=== PATIENT | male | born 1955 | race Caucasian/White ===

== ENCOUNTER 2023-11-25 11:27 | Outpatient (OUT) | payer MEDICARE, MEDICAID, SELFPAY ==
[2023-11-25 12:00] LABS: Basophils Absolute Auto 0.1 10^3/uL (0.0-0.1); Basophils Percent Auto 0.6 % (0.2-2.0); Eosinophils Absolute Auto 1.1 10^3/uL (0.0-0.7); Eosinophils Percent Auto 13.5 % (0.9-7.0); Hematocrit 47.3 % (42.0-54.0); Hemoglobin 16.1 g/dL (14.0-18.0); Immature Granulocytes Abs Auto 0.02 10^3/uL (0.00-0.03); Immature Granulocytes Pct Auto 0.3 % (0.0-0.5); Lymphocytes Absolute Auto 1.4 10^3/uL (1.2-3.8); Lymphocytes Percent Auto 17.8 % (20.5-60.0); Mean Corpuscular Volume 88.1 fL (80.0-94.0); Mean Platelet Volume 9.6 fL (9.5-13.5); Monocytes Absolute Auto 0.8 10^3/uL (0.3-0.8); Monocytes Percent Auto 9.7 % (1.7-12.0); Neutrophils Absolute Auto 4.6 10^3/uL (1.4-6.5); Neutrophils Percent Auto 58.1 % (43.0-75.0); Platelet Count 227 10^3/uL (150-450); Red Blood Count 5.37 10^6/uL (4.70-6.10); White Blood Count 7.9 10^3/uL (4.0-11.0)
[2023-11-25 13:44] LABS: Anion Gap 9.2; BUN Creatinine Ratio 15.5; Calcium 9.9 mg/dL (8.5-10.1); Carbon Dioxide 31.7 mmol/L (21.0-32.0); Chloride 101 mmol/L (98-107); Estimated GFR (African America >60 (>=60); Estimated GFR (Non-African Ame >60 (>=60); Glucose 84 mg/dL (74-106); Potassium 3.9 mmol/L (3.5-5.1); Sodium 138 mmol/L (136-145)
[2023-11-25 14:33] LABS: Free T4 0.82 ng/dL (0.76-1.46)
== END 2023-11-25 11:28 | disposition home or self-care (01) ==
LOC: LAB 11:34
PROVIDERS: PCP Family Medicine; Visit Provider Family Medicine
DX: E03.9 Hypothyroidism, unspecified (principal); I10 Essential (primary) hypertension
CPT/HCPCS: 36415; 80048; 84439; 84443; 85025

== ENCOUNTER 2024-08-22 06:52 | Outpatient (OUT) | payer MEDICARE, MEDICAID, SELFPAY ==
--- OUTSIDE RECORDS SUMMARY | 2024-08-22 06:55 | XMS_ITS | CCD ---
Author Organization [facility] Care Team Providers Care Senior Risk Analyst Name Role Phone Shanti Walker Unavailable DENISE, DR SHANTI Worthy Admitting Unavailable WALKER, DR SHANTI Worthy Attending Unavailable WALKER, DR SHANTI Worthy Primary Care Unavailable WALKER, DR SHANTI Worthy Admitting Unavailable WALKER, DR SHANTI Worthy Attending Unavailable WALKER, DR SHANTI Worthy Primary Care Unavailable WALKER, DR SHANTI Worthy Consulting Unavailable WALKER, DR SHANTI Worthy Admitting Unavailable WALKER, DR SHANTI Worthy Attending Unavailable WALKER, DR SHANTI Worthy Primary Care Unavailable CARI, DR TITUS Pacheco Consulting Unavailable WALKER, DR SHANTI Worthy Consulting Unavailable JAYLIN BURNHAM Consulting Unavailable DO Haider Young Attending Provider MD Shanti Walker Primary Care Provider [phone] Shanti Walker Primary Care Unavailable Haider Young Attending UnavailHaider Mackay Admitting UnavailShanti Grimaldo MD Primary Care Provider [phone] Shanti Walker MD Primary Care Provider DUGLAS PHILLIPS Attending Unavailable DUGLAS PHILLIPS Attending Unavailable DUGLAS PHILLIPS Attending Unavailable DUGLAS PHILLIPS Attending Unavailable DUGLAS PHILLIPS Attending Unavailable Allergies Allergy Classification Reported Allergen(s) Allergy Type Date of Onset Reaction(s) Facility (2 sources) Bacitracin Drug Allergy 06-06-19 14 [facility] (2 sources) bee venom Drug allergy (disorder) 06-06-19 14 [facility] (2 sources) Neomycin Drug Allergy 05-30-19 14 [facility] (2 sources) Mold Extract Drug Allergy Unknown [facility] Other (2 sources) Sulfamethoxazole / Trimethoprim Drug Allergy 09-12-19 17 Unknown [facility] Other (2 sources) Allergies Reconciled Propensity to adverse reactions Unknown [facility] Other (2 sources) Bee Sting Drug allergy 02-25-20 13 Unknown [facility] Other (2 sources) patient allergy list reviewed by nurse or physicia Propensity to adverse reactions 02-25-20 13 Comment:Done [facility] Other (2 sources) Neosporin + Pain Relief Max [facility] *DERMATOLOGICALS* Propensity to adverse reactions 02-25-20 13 Unknown [facility] Other (5 sources) Bacitracin Drug Allergy 08-03-19 [facility] (5 sources) Neomycin Drug Allergy 08-03-19 [facility] (5 sources) Polymyxin B Drug Allergy 08-03-19 [facility] Medications Current Medications Medication Drug Class(es) Dates Sig (Normalized) Sig (Original) azithromycin 250 mg oral tablet (1 source) Macrolide Antimicrobial Start: 01-29-2023 Azithromycin 250 MG as directed Orally 2 tabs po today, then 1 tab daily x 4 more days for 5 Jan, Active benzonatate 200 mg oral capsule (1 source) Non-narcotic Antitussive Start: 01-29-2023 take 1 capsule by mouth every eight hours Benzonatate 200 MG 1 capsule Orally Three times a day for 10 day(s) Jan, Active carbidopa 25 mg / levodopa 100 mg oral tablet (5 sources) Aromatic Amino Acid Decarboxylation Inhibitor, Aromatic Amino Acid Start: 12-13-2023 carbidopa-levodopa (Sinemet) 25-100 MG tablet Indications: Parkinson's disease TAKE 1/2 TABLET BY MOUTH 3 TIMES DAILY 30 135 tablet 1 12/13/2023 Active cefdinir 300 mg oral capsule (1 source) Cephalosporin Antibacterial take 1 tablet by mouth twice daily Cefdinir 300 MG 1 tab Orally bid for 7 days Active ciprofloxacin 2 mg/ml otic solution (1 source) Quinolone Antimicrobial Ciprofloxacin HCl 0.2 % 0.25 mL into affected ear Otic 4 dropperful three times daily for 7 days Active ciprofloxacin 3 mg/ml / dexamethasone 1 mg/ml otic suspension (5 sources) Corticosteroid, Quinolone Antimicrobial ciprofloxacin-dexAM ETHasone (Ciprodex) otic suspension every 12 (twelve) hours. Active citalopram 20 mg oral tablet (10 sources) Serotonin Reuptake Inhibitor take 1 tablet by mouth once daily in the morning citalopram (CeleXA) 20 MG tablet take 1 tablet by ORAL route every morning Oral Active diphenhydrAMINE hydrochloride 25 mg oral tablet (10 sources) Histamine-1 Receptor Antagonist take 1 tablet by mouth once daily in the evening diphenhydrAMINE (Benadryl Allergy) 25 MG tablet 1 by mouth every evening Active Benadryl 25 MG 1 capsule as needed Orally at bedtime Active [id number] 0.3 ml EPINEPHrine 1 mg/ml auto-injector (10 sources) alpha-Adrenergic Agonist, beta-Adrenergic Agonist, Catecholamine Start: 08-20-2021 EPINEPHrine (Epipen) 0.3 MG/0.3ML injection syringe USE ONE INJECTION NEEDED 08/20/2021 Active EPINEPHrine 0.3 MG/0.3ML as directed Injection as needed Active hydroCHLOROthiazide 25 mg / lisinopril 20 mg oral tablet (10 sources) Thiazide Diuretic, Angiotensin Converting Enzyme Inhibitor Start: 07-14-2010 take 1 tablet by mouth every twenty-four hours Lisinopril-hydroCHLOROthiazide 20-25 MG 1 tablet Orally Once a day for 90 day(s) June, Active ammonium lactate 120 mg/ml topical lotion (5 sources) ammonium lactate (Lac-Hydrin) 12 % lotion APPLY TO AFFECTED AREA TWICE A DAY for 30 Active meloxicam 15 mg oral tablet (5 sources) Nonsteroidal Anti-inflamm atory Drug Start: 07-06-2022 meloxicam (Mobic) 15 MG tabl et 1 (one) time each day at the same time. 07/06/2022 Active ofloxacin 3 mg/ml otic solution (5 sources) Quinolone Antimicrobia l Start: 07-07-2022 ofloxacin (Floxin) 0.3 % mendez c solution INSTILL 4 DROPS IN AFFECTED EAR 3 TIMES DAILY FOR 7 DAYS 07/07/2022 Active Completed/Discontinued Medications Medication Drug Class(es) Dates Sig (Normalized) Sig (Original) levothyroxine sodium 0.125 mg oral tablet (5 sources) l-Thyroxine take 1 tablet by once daily in the morning Synthroid 125 MCG 1 tablet in the morning on an empty stomach Orally Once a day Not-Taking/PRN take 1 tablet by lou th once daily in the morning Synthroid 125 MCG 1 tablet in the mornin g on an empty stomach Orally Once a day Not-Taking Problems Active Problems Problem Classification Problem Date Documented Date Episodic/Chronic Anxiety disorders (7 sources) Generalized anxiety disorder; Translations: [Generalized anxiety disorder] Onset: 3 Chronic Bacterial infection; unspecified site (1 source) Other specified bacterial agents as the cause of diseases classified elsewhere Episodic Developmental disorders (2 sources) Mental retardation; Translations: [Unspecified intellectual disabilities] Onset: 3 Chronic Disorders of lipid metabolism (5 sources) Pure hypercholesterolemia; Translations: [Pure hypercholesterolemia] Chronic Esophageal disorders (5 sources) Gastroesophageal reflux disease; Translations: [GERD] Chronic Essential hypertension (16 sources) Hypertensive disorder; Translations: [Hypertension] Onset: 3 Chronic Immunizations and screening for infectious disease (2 sources) Vaccination given; Translations: [Encounter for immunization] Episodic Mycoses (2 sources) Pain in toe; Translations: [Tinea unguium] 12-16-2023 Episodic Osteoarthritis (5 sources) Primary osteoarthritis, left shoulder; Translations: [Arthropathy, unspecified, shoulder region] Onset: 3 08-03-2022 Chronic Other circulatory disease (7 sources) Elevated blood-pressure reading without diagnosis of hypertension; Translations: [Elevated blood-pressure reading, without diagnosis of hypertension] Episodic Other connective tissue disease (1 source) Pain in right leg Episodic Other connective tissue disease (1 source) Pain in left leg Episodic Other connective tissue disease (1 source) Capsulitis of metatarsophalangeal joint of right foot; Translations: [Other enthesopathy of right foot and ankle] 12-16-2023 Episodic Other ear and sense organ disorders (2 sources) Chronic otitis externa; Translations: [Unspecified chronic otitis externa, unspecified ear] Chronic Other ear and sense organ disorders (7 sources) Impacted cerumen; Translations: [Impacted cerumen, bilateral] Episodic Other gastrointestinal disorders (5 sources) Irritable bowel syndrome; Translations: [IBS [Irritable bowel syndrome]] Chronic Other injuries and conditions due to external causes (7 sources) Unspecified injury of muscle, fascia and tendon of the posterior muscle group at thigh level, left thigh, initial encounter; Translations: [Left hamstring injury, initial encounter] Episodic Other lower respiratory disease (7 sources) Dyspnea; Translations: [Other forms of dyspnea] Episodic Other lower respiratory disease (2 sources) Wheezing; Translations: [WHEEZING] Onset: 3 Episodic Other nervous system disorders (3 sources) Chronic pain; Translations: [Other chronic pain] Chronic Other nervous system disorders (2 sources) Carpal tunnel syndrome; Translations: [Carpal tunnel syndrome, unspecified upper limb] Onset: 4 Chronic Other nervous system disorders (1 source) Other chronic pain Chronic Other nervous system disorders (5 sources) Shuffling gait; Translations: [Other abnormalities of gait and mobility] Episodic Other nervous system disorders (1 source) Other abnormalities of gait and mobility Episodic Other nervous system disorders (1 source) Ataxia, unspecified; Translations: [Ataxia, unspecified] Onset: 3 Episodic Other nutritional; endocrine; and metabolic disorders (11 sources) Body mass index 25-29 - overweight; Translations: [Body mass index (BMI) 29.0-29.9, adult] Onset: 7 Episodic Other skin disorders (2 sources) Asteatosis cutis; Translations: [Xerosis cutis] 12-16-2023 Episodic Other upper respiratory disease (5 sources) Allergic rhinitis; Translations: [Allergic rhinitis, cause unspecified] Chronic Other upper respiratory disease (5 sources) Seasonal allergy; Translations: [Other seasonal allergic rhinitis] Chronic Other upper respiratory disease (2 sources) Seasonal allergic rhinitis; Translations: [Other seasonal allergic rhinitis] Chronic Other upper respiratory infections (7 sources) Bacterial sinusitis; Translations: [Chronic sinusitis, unspecified] Chronic Otitis media and related conditions (1 source) Otitis media, unspecified, right ear Episodic Spondylosis; intervertebral disc disorders; other back problems (1 source) Radiculopathy, lumbar region Episodic Unclassified (3 sources) LOW BACK PAIN, UNSPECIFIED; Translations: [LOW BACK PAIN, UNSPECIFIED] Onset: 3 Unclassified (2 sources) 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); Translations: [Post COVID-19 condition, unspecified] Past or Other Problems Problem Classification Problem Date Documented Da te Episodic/Chronic Acute bronchitis (2 sources) Acute bronchitis; Translations: [Acute bronchitis, unspecified] Onset: 03-23-2013 Episodic Allergic reactions (2 sources) Contact dermatitis; Translations: [Contact dermatitis and other eczema, due to unspecified cause] Onset: 08-15-2018 Episodic Disorders of teeth and jaw (2 sources) Carious exposure of pulp ; Translations: [Dental caries extending into pulp] Onset: 01-18-2017 Episodic Inflammation; infection of eye (except that caused by tuberculosis or sexually transmitteddisease) (2 sources) Acute conjunctivitis; Translations: [Unspecified acute conjunctivitis] Onset: 10-19-2017 Episodic Malaise and fatigue (5 sources) Asthenia; Translations: [Weakness] Onset: 07-22-2022 07-22-2022 Episodic Open wounds of extremities (2 sources) Late effect of open wound of extremities without tendon injury; Translations: [Laceration with foreign body, left foot, sequela] Onset: 09-11-2016 Episodic Other connective tissue disease (2 sources) Plantar fascial fibromatosis; Translations: [Plantar fascial fibromatosis] Onset: 12-15-2016 Episodic Other connective tissue disease (5 sources) Nontraumatic complete rupture of rotator cuff of left shoulder; Translations: [Complete rotator cuff tear or rupture of left shoulder, not specified as traumatic] Onset: 08-03-2022 08-03-2022 Episodic Other connective tissue disease (5 sources) Adhesive capsulitis of left shoulder; Translations: [Adhesive capsulitis of left shoulder] Onset: 08-03-2022 08-03-2022 Episodic Other ear and sense organ disorders (2 sources) Acute otitis externa; Translations: [Acute swimmers' ear] Onset: 09-23-2017 Episodic Other nervous system disorders (2 sources) Abnormal involuntary movement; Translations: [Unspecified abnormal involuntary movements] Onset: 02-24-2013 Episodic Other non-traumatic joint disorders (6 sources) Pain in right shoulder; Translations: [Pain in joint, shoulder region] Onset: 07-22-2022 Episodic Other non-traumatic joint disorders (2 sources) Arthralgia of the lower leg; Translations: [Pain in joint, lower leg] Onset: 06-17-2018 Episodic Other non-traumatic joint disorders (5 sources) Stiffness of right shoulder; Translations: [Stiffness of right shoulder, not elsewhere classified] Onset: 07-22-2022 07-22-2022 Episodic Other screening for suspected conditions (not mental disorders or infectious disease) (1 source) Encounter for screening for malignant neoplasm of prostate; Translations: [ENC SCREEN MALIG NEOPLASM PROSTATE] Onset: 12-19-2021 Episodic Other upper respiratory infections (3 sources) Acute maxillary sinusitis; Translations: [Acute recurrent maxillary sinusitis] Onset: 11-05-2017 Episodic Skin and subcutaneous tissue infections (2 sources) Cellulitis of finger; Translations: [Cellulitis of unspecified finger] Onset: 06-10-2017 Episodic Unclassified (3 sources) [id number] condition; Translations: [[id number] condition] Unclassified (1 source) Low back pain, unspecified M54.50 Unclassified (1 source) LOW BACK PAIN, UNSPECIFIED; Translations: [LOW BACK PAIN, UNSPECIFIED] Onset: 04-22-2022 Unclassified (2 sources) 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); Translations: [Gdlp-[id number]-13 condition] Results Test Name Value Interpretation Reference Range Facil ity CT head/brain wo conon 06-29 CT head/brain wo con [facility] [place] [address] CT Scan Report Signed Patient: Esteban Weeks MR#: [id number] : 1955 Acct:[id number] Age/Sex: 66 / M ADM Date: 06/29/22 Loc: [facility] Room: Type: [facility] Attending Dr: Haider Young DO Copies to: Naseem Young DO Ordering Provider: Naseem Young DO Date of Service: 06/29/22 CT/CT head/brain wo con: R27.[address] TECHNIQUE: Contiguous axial imaging of the head. The CT exam was performed using one or more the following dose reduction techniques: Automated exposure control, adjustment of the MA and/or Kv according to patient size, or use of the iterative reconstruction technique. COMPARISON: None HISTORY: Unsteady gait. Ataxia. VENTRICLES: Within normal limits ATROPHY: None BRAIN PARENCHYMA: Adequate mercer-white matter differentiation identified. HEMORRHAGE: None HERNIATION: No mass effect or herniation INFARCTION: No recent vascular distribution infarction is seen. EXTRA-AXIAL FLUID COLLECTIONS None MIDBRAIN: Unremarkable MELISSA: Unremarkable MEDULLA: Unremarkable SINUSES: Mild sinus disease. ORBITS: Grossly unremarkable MASTOIDS: Unremarkable BONY STRUCTURES chronic RIGHT mastoidectomy changes. ADDITIONAL FINDINGS: CT/CT head/brain wo con IMPRESSION: Unremarkable exam Impression dictated by: Rajat Ivey M.D.06/29/2022 1:45 PM Dictation Location: [place] [address] Transcribed By: [facility] 06/29/22 1345 Dictated By: Rajat Ivey DO 06/29/22 1344 Signed By: 06/29/22 1345 Normal [facility] XR LSPINE 2_3 VIEWSon 2022 XR LSPINE 2_3 VIEWS EXAMINATION: XR LSPINE 2_3 VIEWS HISTORY: Low back pain , chronic COMPARISON: XR L-spine 03/14/2021 FINDINGS: BONES: Mild left convex curvature of lumbar spine. Anderson jerardo extending from L1 cephalad above the level of imaging. No fracture or spondylolisthesis. Multilevel moderate degenerative facet arthropathy. DISC SPACES: Mild narrowing L5-S1. PARASPINOUS: Negative. No paraspinous abnormality is seen. OTHER: Negative. IMPRESSION: 1. Multilevel mild to moderate degenerative changes. 2. Stable mild levocurvature and visible portion of thoracic Juice jerardo. Electronically authenticated by: TITUS ALCALA Date: 2022-04-23 18:21 Normal [facility] XR CHEST 2 Von 04-22-2022 XR CHEST 2 V EXAM: XR CHEST 2 V HISTORY: Low back pain . Wheezing. COMPARISON: 03/12/2019 TECHNIQUE: Upright PA and lateral chest x-ray FINDINGS: The heart is not enlarged and the vasculature is not distended. No acute infiltrate, effusion or pneumothorax is identified. Scoliosis the spine is noted with hardware in place posteriorly. IMPRESSION: No acute infiltrate or evidence of cardiac decompensation. The overall appearance of the chest is essentially unchanged. Electronically authenticated by: JAYLIN BURNHAM Date: 2022-04-22 14:24 Normal [facility] CBC AUTO DIFFon 12-16-2021 BASO # 0.0 103/ul Normal 0.0-0.1 [facility] Comment on above: Performed By: #### C BC #### [facility] [address] [place] [address] [address] Ubaldo Palafox Basophils/100 WBC (Bld) 0.6 % Normal 0.2-2.0 [facility] Comment on above: Performed By: #### C BC #### [facility] [address] [place] [address] Dr. Ubaldo Palafox EO # 0.9 103/ul Critically high 0.0-0.7 [facility] Comment on above: Performed By: #### C BC #### [facility] [address] [place] [address] Dr. Ubaldo Palafox Eosinophils/100 WBC (Bld) 12.4 % Critically high 0.9-7.0 [facility] Comment on above: Performed By: #### C BC #### [facility] [address] [place] [address] Dr. Ubaldo Palafox Erythrocyte distribution width (RBC) [Ratio] 12.8 % Normal 11.0-15.0 [facility] Comment on above: Performed By: #### C BC #### [facility] [address] [place] [address] Dr. Ubaldo Palafox Hematocrit (Bld) [Volume fraction] 48.0 % Normal 42.0-54.0 [facility] Comment on above: Performed By: #### C BC #### [facility] [address] [place] [address] Dr. Ubaldo Palafox Hemoglobin (Bld) [Mass/Vol] 16.2 g/dL Normal 14.0-18.0 [facility] Comment on above: Performed By: #### C BC #### [facility] [address] [place] [address] Dr. Ubaldo Palafox IG # 0.02 10e3/ul Normal 0.00-0.03 [facility] Comment on above: Performed By: #### C BC #### [facility] [address] [place] [address] Dr. Ubaldo Palafox IG % 0.3 % Normal 0.0-0.5 [facility] Comment on above: Performed By: #### C BC #### [facility] [address] [address] [address] Ubaldo Palafox LYMPH # 1.6 103/ul Normal 1.2-3.8 [facility] Comment on above: Performed By: #### C BC #### [facility] [address] [address] [address] Ubaldo Palafox Lymphocytes/100 WBC (Bld) 21.9 % Normal 20.5-60.0 [facility] Comment on above: Performed By: #### C BC #### [facility] [address] [address] [address] Ubaldo Palafox MANUAL DIFF REQ NO Normal [facility] Comment on above: Performed By: #### C BC #### [facility] [address] [place] [address] Dr. Ubaldo Palafox MCH (RBC) [Entitic mass] 29.7 pg Normal 25.9-34.0 [facility] Comment on above: Performed By: #### C BC #### [facility] [address] [place] [address] Dr. Ubaldo Palafox MCHC (RBC) [Mass/Vol] 33.8 g/dL Normal 29.9-35.2 [facility] Comment on above: Performed By: #### C BC #### [facility] [address] [place] [address] Dr. Ubaldo Palafox MCV (RBC) [Entitic vol] 87.9 fL Normal 80.0-94.0 [facility] Comment on above: Performed By: #### C BC #### [facility] [address] [place] [address] Dr. Ubaldo Palafox MONO # 0.9 103/ul Critically high 0.3-0.8 [facility] Comment on above: Performed By: #### C BC #### [facility] [address] [place] [address] Dr. Ubaldo Palafox Monocytes/100 WBC (Bld) 11.9 % Normal 1.7-12.0 [facility] Comment on above: Performed By: #### C BC #### [facility] [address] [place] [address] Dr. Ubaldo Palafox NEUT # 3.8 103/ul Normal 1.4-6.5 [facility] Comment on above: Performed By: #### C BC #### [facility] [address] [place] [address] Dr. Ubaldo Palafox Neutrophils/100 WBC (Bld) 52.9 % Normal 43.0-75.0 [facility] Comment on above: Performed By: #### C BC #### [facility] [address] [place] [address] Dr. Ubaldo Palafox Platelet mean volume (Bld) [Entitic vol] 9.6 fL Normal 9.5-13.5 [facility] Comment on above: Performed By: #### C BC #### [facility] [address] [place] [address] Dr. Ubaldo Palafox PLT 202 103/ul Normal 150-450 [facility] Comment on above: Performed By: #### C BC #### [facility] [address] [place] [address] Dr. Ubaldo Palafox RBC 5.46 106/ul Normal 4.70-6.10 [facility] Comment on above: Performed By: #### C BC #### [facility] [address] [place] [address] Dr. Ubaldo Palafox WBC 7.2 103/ul Normal 4.0-11.0 [facility] Comment on above: Performed By: #### C BC #### [facility] [address] [place] [address] Dr. Ubaldo Palafox PROF 14(COMP METB)on 022 Albumin [Mass/Vol] 4.3 g/dL Normal 3.4-5.0 [facility] Comment on above: Performed By: #### C MP #### [facility] [address] [place] [address] Dr. Ubaldo Palafox Albumin/Globulin [Mass ratio] 1.4 {ratio} Normal [facility] Comment on above: Performed By: #### C MP #### [facility] [address] [place] [address] Dr. Ubaldo Palafox ALP [Catalytic activity/Vol] 64 U/L Normal 46-116 [facility] Comment on above: Performed By: #### C MP #### [facility] [address] [place] [address] Dr. Ubaldo Palafox ALT [Catalytic activity/Vol] 30 U/L Normal 16-63 [facility] Comment on above: Performed By: #### C MP #### [facility] [address] [place] [address] Dr. Ubaldo Palafox Anion gap [Moles/Vol] 10.0 mmol/L Normal [facility] Comment on above: Performed By: #### C MP #### [facility] [address] [place] [address] Dr. Ubaldo Palafox AST [Catalytic activity/Vol] 20 U/L Normal 15-37 [facility] Comment on above: Performed By: #### C MP #### [facility] [address] [place] [address] Dr. Ubaldo Palafox Bilirubin [Mass/Vol] 0.6 mg/dL Normal 0.2-1.0 [facility] Comment on above: Performed By: #### C MP #### [facility] [address] [place] [address] Dr. Ubaldo Palafox Calcium [Mass/Vol] 9.4 mg/dL Normal 8.5-10.[address] [facility] Comment on above: Performed By: #### C MP #### [facility] [address] [place] [address] Dr. Ubaldo Palafox Chloride [Moles/Vol] 104 mmol/L Normal 98-107 [facility] Comment on above: Performed By: #### C MP #### [facility] [address] [address] [address] Ubaldo Palafox CO2 [Moles/Vol] 31.0 mmol/L Normal 21.0-32.0 [facility] Comment on above: Performed By: #### C MP #### [facility] [address] [place] [address] Dr. Ubaldo Palafox Creatinine [Mass/Vol] 1.03 mg/dL Normal 0.70-1.30 [facility] Comment on above: Performed By: #### C MP #### [facility] [address] [address] [address] Ubaldo Palafox EGFR-AF NIGERIAN >60 Normal >=60 [facility] Comment on above: Performed By: #### C MP #### [facility] [address] [address] [address] Ubaldo Palafox EGFR-NON AF NIGERIAN >60 Normal >=60 [facility] Comment on above: Performed By: #### C MP #### [facility] [address] [address] [address] Ubaldo Palafox Globulin (S) [Mass/Vol] 3.1 g/dL Normal [facility] Comment on above: Performed By: #### C MP #### [facility] [address] [place] [address] Dr. Ubaldo Palafox Glucose [Mass/Vol] 85 mg/dL Normal 74-[address] [facility] Comment on above: Performed By: #### C MP #### [facility] [address] [address] [address] Ubaldo Palafox Potassium [Moles/Vol] 4.0 mmol/L Normal 3.5-5.1 [facility] Comment on above: Performed By: #### C MP #### [facility] [address] [place] [address] Dr. Ubaldo Palafox Protein [Mass/Vol] 7.4 g/dL Normal 6.4-8.2 [facility] Comment on above: Performed By: #### C MP #### [facility] [address] [address] [address] Ubaldo Palafox Sodium [Moles/Vol] 141 mmol/L Normal 136-145 [facility] Comment on above: Performed By: #### C MP #### [facility] [address] [address] [address] Ubaldo Palafox Urea nitrogen [Mass/Vol] 15.0 mg/dL Normal 7.0-18.0 [facility] Comment on above: Performed By: #### C MP #### [facility] [address] [place], [place] [address] Dr. Ubaldo Palafox Urea nitrogen/Creatinin e [Mass ratio] 14.6 mg/mg Normal [facility] Comment on above: Performed By: #### C MP #### [facility] [address] [place], [place] [address] Dr. Ubaldo Palafox Vital Signs Date Time Vital Sign Value Performing Clinician Facility 06-15-2024 13:25-0400 Body height 175.3 cm Duglas Phillips DPM Work Phone: [facility] 06-15-2024 13:25-0400 Body mass index (BMI) [Ratio] 28.35 kg/m2 Duglas Phillips DPM Work Phone: [facility] 06-15-2024 13:25-0400 Body weight 87.09 kg Duglasdemetra Phillips DPM Work Phone: [facility] 06-15-2024 13:25-0400 Respiratory rate 16 /min Duglas Brown DPM Work Phone: [facility] 12-16-2023 12:56-0400 Body height 175.3 cm Duglas Alan DPM Work Phone: [facility] 12-16-2023 12:56-0400 Body mass index (BMI) [Ratio] 28.35 kg/m2 Duglas Brown DPM Work Phone: [facility] 12-16-2023 12:56-0400 Body weight 87.09 kg Duglas Brown DPM Work Phone: [facility] 12-16-2023 12:56-0400 Diastolic blood pressure 80 mm[Hg] Duglas Phillips DPM Work Phone: [facility] 12-16-2023 12:56-0400 Heart rate 88 /min Duglas Brown DPM Work Phone: [facility] 12-16-2023 12:56-0400 Systolic blood pressure 123 mm[Hg] Duglas Phillips DPM Work Phone: [facility] 04-06-2023 09:15-0500 Body height 182.88 cm Shanti Walker Other [facility] Other 04-06-2023 09:15-0500 Body mass index (BMI) [Ratio] 24.84 kg/m2 Shanti Walker Other [facility] Other 04-06-2023 09:15-0500 Body temperature 98 [degF] Shanti Walker Other [facility] Other 04-06-2023 09:15-0500 Body weight 83.1 kg Shanti Walker Other [facility] Other 04-06-2023 09:15-0500 Diastolic blood pressure 65 mm[Hg] Shanti Walker Other [facility] Other 04-06-2023 09:15-0500 Systolic blood pressure 105 mm[Hg] Shanti Walker Other [facility] Other 01-29-2023 09:15-0500 Body height 182.88 cm Shanti Walker Other [facility] Other 01-29-2023 09:15-0500 Body mass index (BMI) [Ratio] 25.09 kg/m2 Shanti Walker Other [facility] Other 01-29-2023 09:15-0500 Body temperature 96.2 [degF] Shanti Walker Other [facility] Other 01-29-2023 09:15-0500 Body weight 83.92 kg Shanti Walker Other [facility] Other 01-29-2023 09:15-0500 Diastolic blood pressure 80 mm[Hg] Shanti Walker Other [facility] Other 01-29-2023 09:15-0500 SaO2% (BldA) [Mass fraction] 98 % Shanti Walker Other [facility] Other 01-29-2023 09:15-0500 Systolic blood pressure 149 mm[Hg] Shanti Walker Other [facility] Other 04-21-2022 09:15-0500 Body height 182.88 cm Shanti Walker Other [facility] Other 04-21-2022 09:15-0500 Body mass index (BMI) [Ratio] 25.77 kg/m2 Shanti Walker Other [facility] Other 04-21-2022 09:15-0500 Body weight 86.18 kg Shanti Walker Other [facility] Other 04-21-2022 09:15-0500 Diastolic blood pressure 72 mm[Hg] Shanti Walker Other [facility] Other 04-21-2022 09:15-0500 SaO2% (BldA) [Mass fraction] 84 % Shanti Walker Other [facility] Other 04-21-2022 09:15-0500 Systolic blood pressure 120 mm[Hg] Shanti Walker Other [facility] Other Encounters Encounter Date Encounter Type Care Provider Facility Start: 06-15-2024 End: 06-15-2024 Bill Amgenluis alberto Phillips DPM Work Phone: [facility] Start: 06-15-2024 End: 06-15-2024 GreenIQluis alberto Phillips DPM Work Phone: [facility] Start: 06-15-2024 End: 06-15-2024 Office outpatient visit 15 minutes Duglas Phillips DPM Work Phone: [facility] Comment on above: Xerosis cutis (Prima ry Dx); Pain due to onychomycosis of toenails of both feet Start: 06-15-2024 End: 06-15-2024 ambulatory DUGLAS PHILLIPS Not Available Start: 03-02-2024 End: 03-02-2024 Bamboo flowsheet Duglas Phillips DPM Work Phone: [facility] Start: 03-02-2024 End: 03-02-2024 Bamboo flowsheet Duglas Phillips DPM Work Phone: [facility] Start: 03-02-2024 End: 03-02-2024 ambulatory DUGLAS PHILLIPS Not Available Start: 12-16-2023 End: 12-16-2023 Bamboo flowsheet Duglas Phillips DPM Work Phone: [facility] Start: 12-16-2023 End: 12-16-2023 Bamboo flowsheet Duglas Phillips DPM Work Phone: [facility] Start: 12-16-2023 End: 12-16-2023 Office outpatient visit 15 minutes Duglas Phillips DPM Work Phone: [facility] Comment on above: Xerosis cutis (Prima ry Dx); Pain due to onychomycosis of toenails of both feet; Capsulitis of metatarsophalangeal (MTP) joint of right foot Start: 12-16-2023 End: 12-16-2023 ambulatory DUGLAS PHILLIPS Not Available Start: 10-07-2023 End: 10-07-2023 ambulatory DUGLAS PHILLIPS Not Available Start: 07-08-2023 End: 07-08-2023 ambulatory DUGLAS PHILLIPS Not Available Start: 04-06-2023 End: 04-06-2023 ambulatory Shanti Walker Other [facility] Other Start: 04-06-2023 Office outpatient vi sit 15 minutes Shanti Walker [facility] Start: 01-29-2023 End: 01-29-2023 ambulatory Shanti Walker Other [facility] Other Start: 01-29-2023 Office outpatient vi sit 25 minutes Shanti Walker [facility] Start: 07-02-2022 End: 07-02-2022 ambulatory Shanti Walker Other [facility] Other Start: 07-02-2022 Telephone encounter Shanti Walker [facility] Start: 06-29-2022 End: 06-29-2022 ambulatory Shanti Walker Facility:[facility] Start: 06-29-2022 End: 06-29-2022 ambulatory MD Shanti Walekr Work Phone: [facility] Work Phone: Start: 06-29-2022 End: 06-29-2022 Patient encounter procedure MD Shanti Walker Work Phone: [facility] [address] Work Phone: Start: 06-15-[address] SHANTI WALKER Facil ity:[facility] Start: 04-24-2022 End: 04-24-2022 ambulatory Shanti Walker Other [facility] Other Start: 04-24-2022 Telephone encounter Shanti Walker [facility] Start: 04-22-2022 End: 04-23-[address] SHANTI WALKER Facility:[facility] Start: 04-21-2022 End: 04-21-2022 ambulatory Shanti Walker Other [facility] Other Start: 04-21-2022 Office outpatient vi sit 25 minutes Shanti Walker [facility] Start: 12-16-2021 End: 12-17-[address] SHANTI WALKER Facility: Start: 12-15-2021 Adult health examination Noelle Walker Other [facility] Other Start: 06-12-2021 Preoperative cardiov ascular examination Shanti Walker Other [facility] Other Procedures Date Procedure Procedure Detail Performing Clinician Start: 06-29-2022 CT of head without contrast MD Shanti Walker Work Phone: Start: 12-16-[address] SHANTI WALKER Comment on above: Performed By: #### P [facility] #### [facility] [address] [place] [address] Dr. Ubaldo Palafox Start: 02-01-2018 Pre-surgery evaluation Shanti Walker Other Start: 10-29-2014 Screening for malign ant neoplasm of prostate Shanti Walker Other Screening for malign ant neoplasm of prostate Shanti Walker Other Plan of Treatment Date Care Activity Detail Author Start: 08-24-2024 End: 08-24-2024 Patient encounter procedure 08/24/2024 1:10 PM EDT Procedure Visit [facility] [address] [place] [id number] Duglas Phillips DPM [address] [address] [facility] Start: 06-15-2024 End: 06-15-2024 Patient encounter procedure 06/15/2024 1:30 PM EDT Procedure Visit [facility] [address] [place] [address] Duglas Phillips DPM [address] [address] Xerosis cutis (Primary Dx); Pain due to onychomycosis of toenails of both feet [facility] Comment on above: Xerosis cutis (Primary Dx); Pain due to onychomycosis of toenails of both feet Start: 02-24-2024 End: 02-24-2024 Patient encounter procedure 02/24/2024 1:00 PM EST Procedure Visit [facility] [address] [facility] [address] [place] [id number] Duglas Phillips, DPM [address] [address] [facility] Start: 12-16-2023 End: 12-16-2023 Patient encounter procedure 12/16/2023 1:10 PM EDT Procedure Visit [facility] [address] [facility] [address] [place] [id number] Duglas Phillips, DPM [address] [address] Pain due to onychomycosis of toenails of both feet (Primary Dx); Capsulitis of metatarsophalangeal (MTP) joint of right foot [facility] Comment on above: Pain due to onychomycosis of toenails of both feet (Primary Dx); Capsulitis of metatarsophalangeal (MTP) joint of right foot Immunizations Immunization Date Immunization Notes Care Provider Fa [facility] 01-08-2020 influenza virus vaccine, split virus (incl. purified surface antigen) Shanti Walker Other [facility] Other 11-27-2016 tetanus and diphther ia toxoids, adsorbed, preservative free, for adult use (5 Lf of tetanus toxoid and 2 Lf of diphtheria toxoid) Shanti Walker Other [facility] Other 01-09-2016 influenza virus vaccine, split virus (incl. purified surface antigen) Shanti Walker Other [facility] Other 12-05-2014 tetanus and diphther ia toxoids, adsorbed, preservative free, for adult use (5 Lf of tetanus toxoid and 2 Lf of diphtheria toxoid) Shanti Walker Other [facility] Other Payers Date Payer Category Payer Self-pay 2017 [place] [id number] 1976 [place] [address] [id number] 1959 Medicaid [id number] 1958 Medicare [id number] 1956 Unknown [id number] 1955 Unknown [id number] 1955 Unknown [id number] 1955 Unknown [id number] 1955 Unknown [id number] 1955 Unknown [id number] 1955 Unknown [id number] 1955 Unknown [id number] Medicare Medicare [id number] Unknown Celia BC/BS [id number] Unknown [id number] Social History Date Type Detail Facility Unknown if ever smoked [facility] Other Start: 10-07-2023 End: 03-02-2024 Sex Assigned At [facility] Other Start: 1955 Sex Assigned At Male [facility] Start: 08-02-2022 Tobacco smoking status NHIS Never smoked tobacco [facility] Start: 08-02-2022 Tobacco use and exposure Smokeless tobacco non-user [facility] Start: 10-07-2023 End: 06-15-2024 Alcoholic beverage intake Lifetime non-drinker (finding) [facility] Start: 10-07-2023 End: 03-02-2024 History of Social function [facility] Start: 1955 Sex assigned at Not on file [facility] NEGATED: Highlighted rowStart: NINF History of tobacco use Passive smoker [facility] History of Present illness Narrative 12-16-2023 Duglas Phillips DPM - 12/16/2023 1:10 PM EDT Note Date & Type Note Facility 12-16-2023 History of Presen t illness Narrative Patient: Esteban Weeks : 1955 PCP: Shanti Walker MD SUBJECTIVE This is a 68 y.o. male that presents today with a CC of elongated, thick nails. Pt states nails have been elongated and thick for many years and cause pain with ambulation in shoegear. Pt has tried previous treatment with minimal relief. Pt presents today for nail care and treatment. Patient also presents today for follow-up of right 2nd MPJ capsulitis and rejected prior steroid injection offer however has been taking anti-inflammatories And on previous visit states he had new shoes with some improvement however currently states minimal pain to right foot Pt also presents today with secondary complaints of dry scaly skin to feet. Pt states that they have not been using OTC creams and lotions with minimal relief. 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 Developmental delay History of medical problems mental retardation Hypertension (CMS/HCC) OM (onychomycosis) Plantar fasciitis, bilateral Scoliosis Toe pain, bilateral Medications: Current Outpatient Medications: ammonium lactate (Lac-Hydrin) 12 % lotion, APPLY TO AFFECTED AREA TWICE A DAY for 30, Disp: , Rfl: carbidopa-levodopa (Sinemet) 25-100 MG tablet, TAKE 1/2 TABLET BY MOUTH 3 TIMES DAILY 30, Disp: 135 tablet, Rfl: 1 ciprofloxacin-dexAMETHasone (Ciprodex) otic suspension, every 12 (twelve) hours., Disp: , Rfl: citalopram (CeleXA) 20 MG tablet, take 1 tablet by ORAL route every morning Oral, Disp: , Rfl: diphenhydrAMINE (Benadryl Allergy) 25 MG tablet, 1 by mouth every evening, Disp: , Rfl: EPINEPHrine (Epipen) 0.3 MG/0.3ML injection syringe, USE ONE INJECTION NEEDED, Disp: , Rfl: lisinopril-hydroCHLOROthiazide 20-25 MG tablet, take 1 tablet by ORAL route every day Oral, Disp: , Rfl: meloxicam (Mobic) 15 MG tablet, 1 (one) time each day at the same time., Disp: , Rfl: ofloxacin (Floxin) 0.3 % otic solution, INSTILL 4 DROPS IN AFFECTED EAR 3 TIMES DAILY FOR 7 DAYS, Disp: , Rfl: Social History: Social History Socioeconomic History Marital status: Unmarried Spouse name: Not on file Number of children: Not on file Years of education: Not on file Highest education level: Not on file Occupational History Not on file Tobacco Use Smoking status: Never Passive exposure: Never Smokeless tobacco: Never Vaping Use Vaping status: Never Used Substance and Sexual Activity Alcohol use: Never Drug use: Never Sexual activity: Never Other Topics Concern Not on file Social History Narrative Not on file Social Drivers of Health Financial Resource Strain: Not on file Food Insecurity: Not on file Transportation Needs: Not on file Physical Activity: Not on file Stress: Not on file Social Connections: Not on file Intimate Partner Violence: Not on file Housing Stability: Not on file ROS: General: denies fever, chills, fatigue, malaise OBJECTIVE LE EXAM: DERM: Elongated thick yellow crumbly nails digits 1 through 10. Positive hair growth b/l feet. Very dry and scaly skin to bilateral feet and ankle regions VASC: Positive palpable pedal pulses bilaterally NEURO: Gross sensation intact to bilateral feet ORTHO: Positive pain on palpation to nails 1 through 10 Negative pain on palpation of right 2nd MPJ capsule with negative Charlie test ASSESSMENT 1. Pain due to onychomycosis of toenails of both feet 2. Capsulitis of metatarsophalangeal (MTP) joint of right foot 3. Xerosis cutis PLAN Discussed proper foot care with patient today. Debride nails in length and thickness digits 1 through 10 Patient to continue with oral anti - inflammatories as needed for pain and recommended OTC medications such as tylenol or Ibuprofen Patient education on condition and treatment of condition. Discussed application of hydrating cream to feet twice daily and to not place between toes and to apply prior to bed in evenings and to observe for any redness to feet or red streaks or drainage to feet. Patient to consider [id number] treatments for medication or use of urea cream and prescription today was offered for Lac-Hydrin cream. Duglas Phillips DPM documented in this encounter [facility] Evaluation note 04-06-2023 Note Date & Type Note Facility 04-06-2023 Evaluation note Encounter Date Diagnosis Assessment Notes Apr, Acute right otitis media (ICD-10 - H66.91) Take antibiotic as directed. If develop wheezing, chest tightness, itching, bad cough, blue skin color, seizures, swelling of face, lips, tongue, or throat report to ED. [facility] Other Evaluation note 01-29-2023 Note Date & Type Note Facility 01-29-2023 Evaluation note Encounter Date Diagnosis Assessment Notes Jan, Radiculopathy, lumbar region (ICD-10 - M54.16) Handwrote rxs with this diagnosis code for lift chair and bidet. Jan, Other chronic pain (ICD-10 - G89.29) Jan, Acute sinusitis, unspecified (ICD-10 - J01.90) Sinus infections can be triggered by a secondary infection from a viral URI or even seasonal allergies. Take medications as directed. Use saline nasal spray prior to presciption nasal spray. Take medications as directed, and complete all doses of medication even if you start to feel better. Patient advised to follow up with PCP if symptoms persist or worsen. Patient verbalized understanding and agreement with treatment plan. Jan, Other specified bacterial agents as the cause of diseases classified elsewhere (ICD-10 - B96.89) [facility] Other Evaluation note 04-21-2022 Note Date & Type Note Facility 04-21-2022 Evaluation note Encounter Date Diagnosis Assessment Notes Apr, Low back pain, unspecified (ICD-10 - M54.50) Hx of back surgery - will start w xray - declines PT Apr, Pain in right leg (ICD-10 - M79.604) Declines PT Apr, Pain in left leg (ICD-10 - M79.605) Apr, Wheezing (ICD-10 - R06.2) Start w CXR. Family history of lung ca and personal secondary smoke inhalation Apr, Acute pain of right shoulder (ICD-10 - M25.511) Declines PT Apr, Shuffling gait (ICD-10 - R26.89) Requests Neurology referral. [facility] Other Evaluation note Note Date & Type Note Facility Evaluation note No Information [facility] Other Evaluation note Note Date & Type Note Facility Evaluation note No assessment information [facility] Work Phone: Evaluation note Note Date & Type Note Facility Evaluation note Diagnosis Xerosis cutis- Primary Other specified disease of sebaceous glands Pain due to onychomycosis of toenails of both feet Capsulitis of metatarsophalangeal (MTP) joint of right foot documented in this encounter [facility] Evaluation note Note Date & Type Note Facility Evaluation note Diagnosis Xerosis cutis- Primary Other specified disease of sebaceous glands Pain due to onychomycosis of toenails of both feet documented in this encounter [facility] History general Narrative - Reported Note Date & Type Note Facility History general Narrative - Reported Type Medical History mental retardation Medical History otitis media Medical History mastoiditis Medical History Blood pressure increase diastoli c Medical History BMI 29.0-29.9,adult Medical History Essential hypertension Medical History Ceruminosis, bilateral Medical History Dyspnea on minimal exertion Medical History Left hamstring injur y, initial encounter Medical History [id number] condition Medical History Seasonal allergies Medical History Bacterial sinusitis Medical History Anxiety Medical History Depression Surgical History back surgery with Pedraza rrington jerardo PE tube 06/01/2013 Hospitalization History Mastoiditis -2005 [facility] History of Present illness Narrative Duglas Phillips DPM - 06/15/2024 1:30 PM EDT Note Date & Type Note Facility History of Present illness Narrative Patient: Esteban Weeks : 1955 PCP: Shanti Walker MD SUBJECTIVE This is a 68 y.o. male that presents today with a CC of elongated, thick nails. Pt states nails have been elongated and thick for many years and cause pain with ambulation in shoegear. Pt has tried previous treatment with minimal relief. Pt presents today for nail care and treatment. Patient also presents today for follow-up of dry skin and fissures to feet and has Intermittently been using prescribed or recommended [id number] cream with some improvement. 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 Developmental delay History of medical problems mental retardation Hypertension (CMS/HCC) OM (onychomycosis) Plantar fasciitis, bilateral Scoliosis Toe pain, bilateral Medications: Current Outpatient Medications: ammonium lactate (Lac-Hydrin) 12 % lotion, APPLY TO AFFECTED AREA TWICE A DAY for 30, Disp: , Rfl: carbidopa-levodopa (Sinemet) 25-100 MG tablet, TAKE 1/2 TABLET BY MOUTH 3 TIMES DAILY 30, Disp: 135 tablet, Rfl: 1 ciprofloxacin-dexAMETHasone (Ciprodex) otic suspension, every 12 (twelve) hours., Disp: , Rfl: citalopram (CeleXA) 20 MG tablet, take 1 tablet by ORAL route every morning Oral, Disp: , Rfl: diphenhydrAMINE (Benadryl Allergy) 25 MG tablet, 1 by mouth every evening, Disp: , Rfl: EPINEPHrine (Epipen) 0.3 MG/0.3ML injection syringe, USE ONE INJECTION NEEDED, Disp: , Rfl: lisinopril-hydroCHLOROthiazide 20-25 MG tablet, take 1 tablet by ORAL route every day Oral, Disp: , Rfl: meloxicam (Mobic) 15 MG tablet, 1 (one) time each day at the same time., Disp: , Rfl: ofloxacin (Floxin) 0.3 % otic solution, INSTILL 4 DROPS IN AFFECTED EAR 3 TIMES DAILY FOR 7 DAYS, Disp: , Rfl: Social History: Social History Socioeconomic History Marital status: Unmarried Spouse name: Not on file Number of children: Not on file Years of education: Not on file Highest education level: Not on file Occupational History Not on file Tobacco Use Smoking status: Never Passive exposure: Never Smokeless tobacco: Never Vaping Use Vaping status: Never Used Substance and Sexual Activity Alcohol use: Never Drug use: Never Sexual activity: Never Other Topics Concern Not on file Social History Narrative Not on file Social Drivers of Health Financial Resource Strain: Not on file Food Insecurity: Not on file Transportation Needs: Not on file Physical Activity: Not on file Stress: Not on file Social Connections: Not on file Intimate Partner Violence: Not on file Housing Stability: Not on file ROS: General: denies fever, chills, fatigue, malaise OBJECTIVE LE EXAM: DERM: Elongated thick yellow crumbly nails digits 1 through 10. Positive hair growth b/l feet. Slightly diminished dry and scaly skin to bilateral feet and ankle regions VASC: Positive palpable pedal pulses bilaterally NEURO: Gross sensation intact to bilateral feet ORTHO: Positive pain on palpation to toenails of the left 1,2,3,4,5 toes and right 1,2,3,4,5 toes ASSESSMENT 1. Xerosis cutis 2. Pain due to onychomycosis of toenails of both feet PLAN Discussed proper foot care with patient today. Debride nails in length and thickness digits 1 through 10 Patient to continue with oral anti - inflammatories as needed for pain and recommended OTC medications such as tylenol or Ibuprofen Patient education on condition and treatment of condition. Discussed application of hydrating cream to feet twice daily and to not place between toes and to apply prior to bed in evenings and to observe for any redness to feet or red streaks or drainage to feet. Patient to consider [id number] treatments for medication or use of urea cream and prescription today was offered for Lac-Hydrin cream. Duglas Phillips DPM documented in this encounter [facility] Reason for Referral Reason 06/01/22 [place] office - Parkinson's - like symptoms Diagnosis 1 Shuffling gait (R26. 89) Referral Organization [facility] David early Referring Provider First Name Shanti Referring Provider Last Name Denise Referring Provider Specialty Family [facility] Referred Organization [facility] Referred Provider Naseem Young Referred Address [address] [place], [place],[address] Referred Provider Specialty Neurology Referral Priority Routine Referral Appointment Date 2022-06-01 General Notes Shwetha Jang 01:35:08 PM >received today, attachments made, waiting for notes to be locked Shwetha Jang 04/23/2022 08:45:58 AM >Hi Dr. Walker, can you lock 04/21 notes so I can send referral. Than Shwetha Morris 04/29/2022 09:16:09 AM >notes locked and referral faxed P2P Shwetha Jang 05/06/2022 08:42:49 AM > Shwetha Jang 05/06/2022 08:43:29 AM >FAXED FIRST ATTEMPT LETTER Shwetha Jang 05/06/2022 04:34:49 PM >received fax with appt date Summary Purpose Family History No Family History Records FoundNo Family History Records FoundNo Family History Records Found Advance Directives No Advanced Directives Records Found Advance Directive Response Recorded Date/ Time Advance Directives No June 25, 2 023 3:25pm Chief Complaint and Reason for Visit Chief Complaint R27.0 Additional Source Comments REASON FOR VISIT (unrecogniz ed section and content) Reason Comments Toenail Care Non DM Nails Reason Comments Toenail Care Non dm nail care (unrecognized sect ion and content) No Status Records FoundNo Status Records FoundNo Status Records Found INFORMATION SOURCE (unrecogn ized section and content) DATE CREATED AUTHOR [facility]15/2022 [facility] DATE CREATED AUTHOR AUTHOR'S ORGANIZ ATION 07/15/2022 [facility] DATE CREATED AUTHOR AUTHOR'S ORGANIZ ATION 06/17/2024 [facility] EPIC Care Teams (unrecognized sec tion and content) Team Status: Active Member Role Status Dates Shanti Walker MD Primary Care Provider Active Team Status: Inactive Member Role Status Dates Haider Young , Attending Provider Active Shanti Walker MD Primary Care Provider Active Senior Risk Analyst Relationship Specialty Start Date End Date Shanti Walker MD [address] [place] [address] PCP - General Family Medicine 07/15/22 Senior Risk Analyst Relationship Specialty Start Date End Date Shanti Walker MD [address] [place] [phone] PCP - General Family Medicine 07/15/22 Senior Risk Analyst Relationship Specialty Start Date End Date Shanti Walker MD [address] [facility] [phone] PCP - General Family Medicine 07/15/22 Senior Risk Analyst Relationship Specialty Start Date End Date Shanti Walker MD [address] [facility] [phone] PCP - General Family Medicine 06/15/24 Senior Risk Analyst Relationship Specialty Start Date End Date Shanti Walker MD [address] [facility] [address] PCP - General Family Medicine 06/15/24 Goals (unrecognized section and content) Goals may be documented in a n alternate section FOR RECORDS PERTAINING TO PATIENTS WHO ARE OR HAVE BEEN ENROLLED IN A CHEMICAL DEPENDENCY/SUBSTANCEABUSE PROGRAM, SOME INFORMATION MAY BE OMITTED. This clinical summary was aggregated from multiple sources. Caution should be exercised in using it in the provision of clinical care. This summary normalizes information from multiple sources, and as a consequence, information in this document may materially change the coding, format and clinical context of patient data. In addition, data may be omitted in some cases. CLINICAL DECISIONS SHOULD BE BASED ON THE PRIMARY CLINICAL RECORDS. [facility] [email or web address] [facility]. provides no warranty or guarantee of the accuracy or completeness of information in this document.
--- OUTSIDE RECORDS SUMMARY | 2024-08-22 06:56 | XMS_ITS | Encounter Summary ---
Author Organization [facility] Address [address] [place] [address] Care Team Providers Care Clay Digger Name Role Phone Shanti Izquierdo MD Primary Care Provider [phone] Shanti Izquierdo MD Primary Care Provider [phone] Encounter Details Date Type Department Care Team (Late Contact Info) Description 09/14/2022 Abstract [facility] [address] [facility] [place] [phone] Jah Parker DO [address] [place] [address] Social History Tobacco Use Types Packs/Day Years Used Date Smoking Tobacco: Never Passive Smoke Exposure: Never Smokeless Tobacco: Never Tobacco Cessation:Counseling Given: Not Answered Alcohol Use Standard Drinks/Week Comments Never 0 (1 standard drink = 0.6 oz pur e alcohol) Sex and Gender Information Value Date Recorded Sex Assigned at Not on file Legal Sex Male 6:35 PM EDT Gender Identity Not on file Sexual Orientation Not on file documented as of this encounter Plan of Treatment Upcoming Encounters Date Type Department Care Team (Late Contact Info) Description 08/24/2024 1:10 PM EDT Procedure Visit [facility] [address] [facility] [address] [place] [address] Duglas Phillips DPJacky [address] [facility] 5 [place] [address] documented as of this encounter Visit Diagnoses Not on filedocumented in this encounter Care Teams Clay Digger Relationship Specialty Start Date End Date Shanti Izquierdo MD PCP - General Family Medicine 07/15/22 06/14/24 Shanti Izquierdo MD [address] [place] [phone] PCP - General Family Medicine 06/15/24 documented as of this encounter
--- OUTSIDE RECORDS SUMMARY | 2024-08-22 06:56 | XMS_ITS | Encounter Summary ---
Author Organization [facility] Address [address] [place] [address] Care Team Providers Care Farm Equipment Maintenance Supervisor Name Role Phone Shanti Izquierdo MD Primary Care Provider [phone] Shanti Izquierdo MD Primary Care Provider [phone] Encounter Details Date Type Department Care Team ([facility] Contact Info) Description 08/12/2022 Abstract [facility] 112 [facility] [address] [place] [address] Dillan Doherty, PT 112 [facility] [address] [place] [address] Social History Tobacco Use Types Packs/Day Years Used Date Smoking Tobacco: Never Passive Smoke Exposure: Never Smokeless Tobacco: Never Alcohol Use Standard Drinks/Week Comments Never 0 [...] EDT Procedure Visit [facility] 112 [facility] [address] [place] [phone] Duglas Phillips DPM [address] [facility] 5 [place] [address] documented as of this encounter Visit Diagnoses Not on filedocumented in this encounter Care Teams Farm Equipment Maintenance Supervisor Relationship Specialty Start Date End Date Shanti Izquierdo MD PCP - General Family Medicine 07/15/22 06/14/24 Shanti Izquierdo MD [address] [place] [phone] PCP - General Family Medicine 06/15/24 documented as of this encounter
--- OUTSIDE RECORDS SUMMARY | 2024-08-22 06:56 | XMS_ITS | Encounter Summary ---
Author Organization [facility] Address [address] [place] [address] Care Team Providers Care Military Communications Specialist Name Role Phone Shanti Izquierdo MD Primary Care Provider [phone] Shanti Izquierdo MD Primary Care Provider [phone] Reason for Visit * Reason Comments Med Refill Encounter Details Date Type Department Care Team (Late st Contact Info) Description 03/31/2024 Refill PRAMOD DARIELA [address] [place] [phone] Naseem Young DO [address] [place] [address] Parkinson's disease (HCC) Social History Tobacco Use Types Packs/Day Years [...] on file documented as of this encounter Miscellaneous Notes * Telephone Encounter - Naseem Young DO - 04/03/2024 11:35 AM EST Refused by pt * Telephone Encounter - Duglas Wise MA - 04/03/2024 11:11 AM EST The pharmacy sends a request for refill of sinemet. The pt has not been seen since 06/02/2023. I called to schedule a f/u and the brother, Zuhair, on HIPAA informed that he has taken the pt off the med as it was making him too tired. Did not schedule an appt. documented in this encounter Plan of Treatment Upcoming Encounters Date Type Department Care Team (Late st Contact Info) Description 08/24/2024 1:10 PM EDT Procedure Visit [facility] 112 [facility] 120 [place] [phone] Duglas Phillips DPM [address] [facility] 5 [place] [address] documented as of this encounter Visit Diagnoses Diagnosis Parkinson's disease (HCC) Paralysis agitans Xerosis cutis- Primary Other specified disease of sebaceous glands Pain due to onychomycosis of toenails of both feet documented in this encounter Care Teams Military Communications Specialist Relationship Specialty Start Date End Date Shanti Izquierdo MD PCP - General Family Medicine 07/15/22 06/14/24 Shanti Izquierdo MD [address] [place] [phone] PCP - General Family Medicine 06/15/24 documented as of this encounter
--- NOTE | 2024-08-22 07:01 | US_ITS ---
The [address] [address] Patient Name: JAQUELINE VALLEJO MRN: [id number] date: 1955 Sex: M Assigned Patient Location: [place] Current Patient Location: [place] Accession/Order Number: [id number] Exam Date: 08/22/2024 11:03 Report Date: 08/22/2024 11:05 At the request of: DOMINIK WALKER MD Procedure: US right upper quadrant LIMITED RIGHT UPPER QUADRANT ABDOMINAL ULTRASOUND CLINICAL HISTORY: Right upper quadrant abdominal pain for the past week COMPARISON: None Evaluation is limited due to bowel gas. The gallbladder is physiologically distended without definite shadowing calculi, wall thickening or pericholecystic fluid. No intra- or extrahepatic biliary dilatation is evident. The common duct measures 2 - 3 mm. The liver is normal in echogenicity. No intrahepatic masses are seen. There is appropriate hepatopetal flow within the main portal vein. The pancreas is not well visualized for assessment. Cursory evaluation of the right kidney reveals no hydronephrosis or fluid within Doss's pouch. There is a cyst at the upper pole the right kidney measuring 4.9 x 4.6 x 4.5 cm. US/US right upper quadrant IMPRESSION: SLIGHT LIMITED STUDY. NO OBVIOUS GALLBLADDER PATHOLOGY. RIGHT RENAL CYST. Impression dictated by: Prema Chandra M.D. 08/22/2024 11:05 AM Dictation Location: [place] [address] Electronically authenticated by: [id number] Y Date: 08/22/2024 11:05
== END 2024-08-22 06:53 | disposition home or self-care (01) ==
PROVIDERS: PCP Family Medicine; Visit Provider Family Medicine
DX: R10.11 Right upper quadrant pain (principal); N28.1 Cyst of kidney, acquired
CPT/HCPCS: 76705